=== PATIENT | female | born 2000 | race Caucasian/White ===

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

== ENCOUNTER 2019-05-30 16:16 | Emergency (ER) | payer SELFPAY | END 2019-05-30 16:40 | disposition home or self-care (01) | LOC: ERS 16:16 | DX: M25.531 Pain in right wrist (principal); J45.909 Unspecified asthma, uncomplicated; D64.9 Anemia, unspecified | CPT/HCPCS: 99281 ==

== ENCOUNTER 2020-05-19 14:38 | Outpatient (CLI) | payer OTHER ==
--- NOTE | 2020-05-19 15:26 | ULT ---
ULTRASOUND OBSTETRICAL COMPLETE: DATE: 05/19/2020 HISTORY: 20-year-old female Z 34.02 encounter for supervision of normal first , second trimester FINDINGS: Maternal adnexa: Not visualized. number: rich[place] lie: Vertex Maternal cervix: 4.5 cm. Closed. Placenta: Anterior. No placenta previa. Amniotic fluid volume: ANKIT = 11 cm heart rate: 144 bpm The following anatomy is visualized, with no evidence of anomalies: Head, cerebellum, lateral ventricles, four-chamber heart, stomach, kidneys, cord insertion, bladder, cervical spine, thoracic spine, lumbar spine, sacrum, nose and lips, upper extremities, lower extremities, and three-vessel cord. biometry: Biparietal diameter (BPD): 5.1 cm 21 w 3 d Head circumference (HC): 18.4 cm 20 w 6 d Abdominal circumference (AC): 14.2 cm 19 w 4 d Femur length (FL): 3.5 cm 21 w 0 d Average ultrasound age (AUA): 20 w 5 d Estimated date of delivery (MENDOZA): 10/01/2020 Estimated weight (EFW): 344 g +/- 50 g IMPRESSION: 1) Live 2nd trimester intrauterine gestation. 2) Estimated gestational age of 20 weeks, 5 days 3) Vertex lie. 4) no anatomic abnormality identified.
== END 2020-05-19 14:39 | disposition home or self-care (01) ==
LOC: BICULT 14:38
PROVIDERS: ATTEND Family Medicine
DX: Z34.02 Encounter for supervision of normal first pregnancy, second trimester (principal); Z3A.20 20 weeks gestation of pregnancy
CPT/HCPCS: 76805